=== PATIENT | female | born 2000 | race Caucasian/White ===

== ENCOUNTER 2020-01-14 14:01 | Emergency (ER) | payer MEDICAID, SELFPAY ==
[2020-01-14 14:39] VITALS: BP 140/86; PULSE 92; RESP 16; TEMP 36.9; O2SAT 100; BMI 22.6
--- NOTE | 2020-01-14 15:07 | PC.NURSE ---
PT ALERT, AMBULATORY WITH STEADY GAIT. NO RESP DISTRESS. PT HAD PIMPLE SHE PICKED 2 DAYS AGO TO RIGHT DRUZE AREA AND TODAY HERE RIGHT UNDER EYE BECAME SWOLLEN.
[2020-01-14 15:11] VITALS: BP 132/83; PULSE 88; RESP 18; TEMP 37.3; O2SAT 99
--- NOTE | 2020-01-14 15:19 | ED.SKABFB ---
HPI - Skin/Abscess/Foreign Bdy General Chief complaint: Skin/Abscess/Foreign Body Stated complaint: lump on face Time Seen by Provider: 01/14/20 15:19 History of Present Illness HPI narrative: Patient complains of pain swelling redness to the right alevism area for 2-3 days after squeezing a pimple Now there is some swelling on her cheek and by the right eye, she has no eye pain or vision loss no fever no chills no headache no dizziness no ear pain Related Data Previous Rx's Medication Instructions Recorded clindamycin HCl 300 mg PO Q6H 7 Days #28 cap 01/14/20 doxycycline hyclate 100 mg PO BID 7 Days #14 cap 01/14/20 Allergies Allergy/AdvReac Type Severity Reaction Status Date / Time No Known Allergies Allergy Verified 01/14/20 14:41 [No Known Allergies*] Review of Systems Review of Systems: No fever no chills no dizziness no chest pain or shortness of breath no diarrhea no vomiting no numbness weakness or tingling Yes all other systems are reviewed and are negative [facility] Past Medical History Source: nursing notes reviewed Medical History (Updated 01/14/20 @ 15:22 by RAKESH Price) No known health problems Social History Social History Alcohol intake: never Smoked in Last 30 Days: No Use of substances other than those prescribed or required for medical reasons: No Advance Directives: No Advance Directives Information Provided: Yes Physical Exam Vital Signs: Vital Signs: Last Vital Signs Temp 99.2 F 01/14/20 15:11 Pulse 88 01/14/20 15:11 Resp 18 01/14/20 15:11 BP 132/83 01/14/20 15:11 Pulse Ox 99 01/14/20 15:11 Body Mass Index 22.6 General appearance is no acute distress, cooperative The facial exam in the right alevism area there is a small scabbed area with no swelling no fluctuance no discharge no abscess which has some surrounding erythema and tenderness and warmth, there is also some soft tissue swelling without redness in the infraorbital area and lateral orbital area, but there is no redness no warmth there is full range of extraocular motions which are intact and painless pupils equal round reactive to light, right ear exam is normal with normal tympanic membrane no redness, canal is normal Pharynx is clear Neck is supple without lymphadenopathy Respiratory no distress not Extremities full range of motion x4 Neuro no focal deficit balance is normal speech is normal motor is 5/5 x4, cranial nerves 2 through 12 intact as tested Course Course Course Narrative: Patient has a facial cellulitis in the right alevism area the swelling without redness or tenderness lateral and inferior to the orbit is most likely associated soft tissue tenderness there does not seem to be a periorbital cellulitis yet and there is no pain with extraocular motions, no fever no systemic symptoms so patient is discharged on trial of outpatient antibiotics Discharge Plan Discharge Clinical Impression: Cellulitis Qualifiers: Site of cellulitis: face Qualified Code(s): L03.211 - Cellulitis of face Patient Disposition: Home, Self-Care Additional Instructions: Return to ER, or to primary doctor in 2 days for re-evaluation and recheck Return to ER immediately any time for spreading redness, worse pain and swelling, fever, any sign of worsened infection Take probiotics with clindamycin antibiotic to prevent antibiotic associated diarrhea Prescriptions: New clindamycin HCl 300 mg capsule 300 mg PO Q6H 7 Days Qty: 28 RF: 0 doxycycline hyclate 100 mg capsule 100 mg PO BID 7 Days Qty: 14 RF: 0 Interventions: ED Discharge Assessment Last Done: 01/14/20 16:03 Discharge Date/Time: 01/14/20 16:05
== END 2020-01-14 16:05 | disposition home or self-care (01) ==
PROVIDERS: Emergency Provider Emergency Medicine; PCP Nurse Practitioner Family
DX: L03.211 Cellulitis of face (principal); Z79.899 Other long term (current) drug therapy
CPT/HCPCS: 99283; 99284

== ENCOUNTER 2020-04-14 07:51 | Emergency (ER) | payer MEDICAID, SELFPAY ==
[2020-04-14 08:16] VITALS: BP 114/78; PULSE 97; RESP 16; TEMP 37.2; O2SAT 99; BMI 21.4
[2020-04-14 08:44] LABS: Glucose Urine UA NEG (NEG); Leukocyte Esterase Urine 3+ (NEG); Nitrite Urine NEG (NEG); PH 6.5 (5.0-8.0); Specific Gravity - Urine <= 1.005 (1.005-1.025); UACC Culture Trigger YES; Urine Blood 3+ (NEG); Urine Ketones NEG (NEG); Urine Protein 1+ MG/DL (NEG-TRACE)
[2020-04-14 08:46] LABS: Appearance Urine HAZY; Color Urine PINK
[2020-04-14 08:47] LABS: UPreg QC Valid YES; Urine Pregnancy NEGATIVE (NEGATIVE)
[2020-04-14 08:56] LABS: Amorphous Sediment Urine 1+ /LPF; Bacteria Urine 1+ /LPF; Squamous Epithelial Cell Urine TRACE /LPF; WBC Urine 50-75 /HPF (0-4)
--- NOTE | 2020-04-14 09:21 | ED.FEMALEGU ---
HPI - Female Genitourinary General Chief complaint: Urogenital-Female Stated complaint: PAINFUL UPON URINATION Time Seen by Provider: 04/14/20 07:54 Source: patient Mode of arrival: ambulatory Limitations: no limitations History of Present Illness HPI Narrative: Otherwise healthy 20-year-old female who denies significant past medical history who presents today with complaint of 2 days of dysuria and mild hematuria with void. States she found out yesterday they her boyfriend had cheated on her and he was potentially exposed to chlamydia/gonorrhea for he which she was tested yesterday and treated however the test results are pending. She denies any back pain, pelvic pain, abdominal pain, nausea vomiting or diarrhea. Denies any vaginal lesions. States there is no possibility of as she has Nexplanon. MD elicited complaint: possible STD Onset (ago): day(s) Severity: mild Vaginal discharge: none Vaginal bleeding: none Urinary symptoms: Dysuria Exacerbating factors: none Relieving factors: none Associated symptoms: denies other symptoms Treatment prior to arrival: none Sexual activity: Yes Patient : No Related Data Previous Rx's Medication Instructions Recorded clindamycin HCl 300 mg PO Q6H 7 Days #28 cap 01/14/20 doxycycline hyclate 100 mg PO BID 7 Days #14 cap 01/14/20 doxycycline monohydrate 100 mg PO BID 7 Days #14 cap 04/14/20 metronidazole [Flagyl] 2,000 mg PO ONCE #4 tab 04/14/20 phenazopyridine [Pyridium] 100 mg PO TID PRN #6 tab 04/14/20 Allergies Allergy/AdvReac Type Severity Reaction Status Date / Time No Known Allergies Allergy Verified 01/14/20 14:41 [No Known Allergies*] Review of Systems Review of Systems: Constitutional: No Weight loss, No Fever, No Chills, No Night Sweats, No Fatigue, No Malaise ENT/Mouth: No Hearing loss, No Ear Pain, No Nasal Congestion, No Sinus Pain, No Hoarseness, No sore throat, No Rhinorrhea, No Swallowing Difficulty Eyes: No Eye Pain, No Swelling, No Redness, No Foreign Body, No Discharge, No Vision Changes Cardiovascular: No Chest Pain, No SOB, No Dyspnea on Exertion, No Orthopnea, No Edema, No Palpitations Respiratory: No Cough, No Sputum, No Wheezing, No Dyspnea Gastrointestinal: No Nausea, No Vomiting, No Diarrhea, No Constipation, No abdominal Pain, No Hematochezia, No Melena Genitourinary: As noted per HPI, No Urinary Frequency, No Urinary Incontinence, No Urgency, No Flank Pain, No Urinary Flow Changes Musculoskeletal: No joint pain, No Myalgias, No Joint Swelling Skin: No Skin Lesions, No rash Neuro: Negative Psych: Negative Heme/Lymph: Negative Endocrine: No Polyuria, No Polydipsia, No Temperature Intolerance Yes all other systems are reviewed and are negative [facility] Past Medical History Medical History (Updated 04/14/20 @ 13:18 by Michael Ward NP) No known health problems Social History Social History Alcohol intake: never Smoking Status: Never smoker Use of substances other than those prescribed or required for medical reasons: Yes Substance Use Type: Marijuana Substance Use Frequency: Occasionally Advance Directives: Yes Advance Directives Information Provided: Yes Advance Directives on File: No Physical Exam Vital Signs: Vital Signs: Last Vital Signs Temp 98.9 F 04/14/20 08:16 Pulse 97 04/14/20 08:16 Resp 16 04/14/20 08:16 BP 114/78 04/14/20 08:16 Pulse Ox 99 04/14/20 08:16 Body Mass Index 21.4 Reviewed Const: General: cooperative and healthy appearing; No acute distress or intoxicated appearing Nutritional Appearance: average body habitus Orientation/consciousness: patient oriented x3 HENMT: Head: Yes normal to inspection Ears: hearing grossly normal bilaterally Eyes: General: appearance normal, both eyes and all related structures Visual Arita: normal visual arita by confrontation Chest: Chest palpation & inspection: normal inspection of the chest Resp: Effort & Inspection: normal respiratory effort Cardio: Jugular venous distension: no JVD Rhythm: regular rhythm Heart sounds: S1 normal heart sound present and S2 normal heart sound present GI: Inspection: Yes normal to inspection Palpation (GI): Soft to palpation Percussion: Yes normal to percussion Auscultation: normal bowel sounds : Other: Declined pelvic exam General: Yes no CVA tenderness Back/Spine/Pelvis: Back: no CVA tenderness Skin: General skin exam: no rashes or lesions noted Neuro: General: patient oriented x3 Extrem: General: Yes normal to inspection Course Course Course Narrative: Labs positive for gonorrhea as well as Trichomonas. Patient already given ceftriaxone, doxy and Flagyl. Lab findings were discussed with her and the plan for fu. MDM - Female Genitourinary MDM Narrative Medical decision making narrative: Otherwise healthy 20-year-old female denies any past medical/surgical history presenting with dysuria and mild hematuria in the setting of possible STD exposure for chidi got tested yesterday he got treated for potential chlamydia/gonorrhea she would like to get tested as well. No other systemic symptom declined pelvic exam will do UA/U preg, CT ng as well as BV and treatment prior coulee with ceftriaxone 500 mg IM and start on doxycycline with plan for discharge home with Pyridium. States I did speak to lab and CT ng results should come back this afternoon. Advised patient will call in additional scripts if needed. Differential Diagnosis Differential diagnosis: Likely urinary tract infection, bacterial vaginosis, trichomoniasis and vaginitis; Unlikely cervicitis, ovarian cyst, ruptured ovarian cyst, cyst of Bartholin's gland, cystitis and dysmenorrhea Medical Records Attestation: I reviewed the patient's medical records. Lab Data Attestation: I reviewed the patient's lab results. Labs: Lab Results 04/14/20 04/14/20 04/14/20 Range/Units 08:33 09:41 09:44 Urine Color PINK Urine Appearance HAZY Urine pH 6.5 (5.0-8.0) Ur Specific [place] <= 1.005 (1.005-1.025) Urine Protein 1+ H (NEG-TRACE) MG/DL Urine Glucose (UA) NEG (NEG) MG/DL Urine Ketones NEG (NEG) MG/DL Urine Blood 3+ H (NEG) Urine Nitrite NEG (NEG) Ur Leukocyte Esterase 3+ H (NEG) Urine RBC 5-9 H (0) /HPF Urine WBC 50-75 H (0-4) /HPF Ur Squamous Epith Cells TRACE /LPF Amorphous Sediment 1+ /LPF Urine Bacteria 1+ /LPF Urine Test NEGATIVE (NEGATIVE) Narcisa species DNA Negative (Negative) Chlam trachomat DNA PCR NOT DETECTED (Not Detect.) Gardnerella DNA Probe Negative (Negative) N.gonorrhoeae DNA (PCR) DETECTED A (Not Detect.) Trichomonas DNA Probe Positive A (Negative) Discharge Plan Discharge Clinical Impression: Encounter for assessment of STD exposure, Gonorrhea, infection, trichomonal Patient Disposition: Home, Self-Care Instructions: Sexually Transmitted Diseases (ED), Safe Sex Practices (ED) Additional Instructions: Drink plenty fluids Take the full course of antibiotic as prescribed Return if any concerns or worsening symptoms otherwise follow-up with [facility] for further evaluation and treatment in the next 1 week Thank you Prescriptions: New doxycycline monohydrate 100 mg capsule 100 mg PO BID 7 Days Qty: 14 RF: 0 phenazopyridine [Pyridium] 100 mg tablet 100 mg PO TID PRN (Reason: pain) Qty: 6 RF: 0 metronidazole [Flagyl] 500 mg tablet 2,000 mg PO ONCE Qty: 4 RF: 0 No Action clindamycin HCl 300 mg capsule 300 mg PO Q6H 7 Days Qty: 28 RF: 0 doxycycline hyclate 100 mg capsule 100 mg PO BID 7 Days Qty: 14 RF: 0 Referrals: Physician,Unknown [Primary Care Provider] - 3 days ([facility]) Interventions: ED Discharge Assessment Last Done: 04/14/20 10:16 Discharge Date/Time: 04/14/20 10:17
[2020-04-14] MEDS: cefTRIAXone sodium 500 MG, Lidocaine HCl 1 % MPF 1 ML IM (09:52)
[2020-04-14 11:51] LABS: CT PCR NOT DETECTED (Not Detect.); NG PCR DETECTED (Not Detect.)
[2020-04-14 11:53] LABS: BV Int Neg Control Negative (Negative); BV Int Pos Control Positive (Positive)
== END 2020-04-14 10:17 | disposition home or self-care (01) ==
PROVIDERS: Nurse Practitioner Primary Care; Emergency Provider Emergency Medicine
DX: A59.01 Trichomonal vulvovaginitis (principal); A54.9 Gonococcal infection, unspecified; N73.9 Female pelvic inflammatory disease, unspecified; Z11.3 Encounter for screening for infections with a predominantly sexual mode of transmission
CPT/HCPCS: 81001; 81003; 81025; 87086; 87147; 87480; 87491; 87510; 87591; 87660; 96372; 99283; 99284; J0696

== ENCOUNTER 2021-08-12 17:18 | Emergency (ER) | payer MEDICAID, SELFPAY ==
--- NOTE | ~2021-08-12 | XR_ITS ---
EXAMINATION:XR ankle RT min 3V CLINICAL INFORMATION: Reason for Exam injury COMPARISON: None TECHNIQUE: AP, lateral, and mortise views of the ankle. FINDINGS: There is nondisplaced avulsion chip fracture from the tip of the lateral malleolus. There is adjacent soft tissue swelling.. Ankle mortise is preserved. Tibial plafond and talar dome are intact. Medial and lateral malleoli are properly aligned. Subtalar joint is normal. There is no osteolytic or osteoblastic lesions. XR/XR ankle RT min 3V IMPRESSION: Nondisplaced avulsion chip fracture of the tip of the lateral malleolus. Adjacent soft tissue swelling.
[2021-08-12 17:35] VITALS: BP 126/80; PULSE 94; RESP 16; TEMP 36.4; O2SAT 99; BMI 30.2
--- NOTE | 2021-08-12 19:07 | ED_ITS ---
HPI - Extremity Injury (Lower) General Chief Complaint: Extremity Injury, Lower Stated Complaint: R Ankle Sprain 08/09/21 Time Seen by Provider: 08/12/21 19:06 Source: patient Mode of arrival: ambulatory Limitations: no limitations History of Present Illness HPI Narrative: 21 yo f presents w/ right ankle pain s/p rolling her ankle while walking down a step with cat litter. Pain started immediatly worse with weight bearing better at rest. She tells me she heard a noise. Also reports swelling. Denies numbness and tingling MD complaint: ankle injury Onset (ago): hour(s) (4) Place: home Severity: moderate Relieving factors: immobilization Exacerbating factors: weight bearing and movement Context: other ( clumsy ) Associated symptoms: snap/pop sensation Other symptoms: none Related Data Previous Rx's Medication Instructions Recorded clindamycin HCl 300 mg capsule 300 mg PO Q6H 7 days #28 caps 01/14/20 doxycycline hyclate 100 mg capsule 100 mg PO BID 7 days #14 caps 01/14/20 doxycycline monohydrate 100 mg 100 mg PO BID 7 days #14 caps 04/14/20 capsule metronidazole 500 mg tablet 2,000 mg PO ONCE #4 tabs 04/14/20 (Flagyl) phenazopyridine 100 mg tablet 100 mg PO TID PRN pain 6 doses #6 04/14/20 (Pyridium) tabs Allergies Allergy/AdvReac Type Severity Reaction Status Date / Time No Known Allergies Allergy Verified 01/14/20 14:41 [No Known Allergies*] Review of Systems Review of Systems: Constitutional : No Weight loss, No Fever, No Chills, No Fatigue, No Malaise ENT/Mouth : No sore throat, No Rhinorrhea Eyes: No Eye Pain, No Swelling, No Redness Cardiovascular : No Chest Pain, No SOB, No Dyspnea on Exertion, No Orthopnea, No Edema, No Palpitations Respiratory : No Cough, No Sputum, No Wheezing Gastrointestinal : No Nausea, No Vomiting, No Diarrhea, No Constipation, No abdominal Pain, No Hematochezia, No Melena Genitourinary : No Dysuria, No Urinary Frequency, No Hematuria, Musculoskeletal : + joint pain, No Myalgias, + Joint Swelling Skin : No Skin Lesions, No rash Neuro : No Weakness, No Numbness, No Dizziness, No Headache All other systems reviewed and are negative Yes all other systems are reviewed and are negative [facility] Past Medical History Attestation statement: The following information was validated with the patient. Source: old records reviewed and nursing notes reviewed Medical History No known health problems Social History Social History Alcohol intake: never Substance Use Type: Marijuana Advance Directives: No Advance Directives Information Provided: No Physical Exam Vital Signs: Vital Signs: Last Vital Signs Temp 97.6 F 08/12/21 17:35 Pulse 94 08/12/21 17:35 Resp 16 08/12/21 17:35 BP 126/80 08/12/21 17:35 Pulse Ox 99 08/12/21 17:35 O2 Del Method 08/12/21 17:35 BMI result Body Mass Index 30.2 VSS Appearance: Alert.? Oriented X3.? No acute distress.? Head: Normocephalic, atraumatic, no step-offs or deformities Eyes: Pupils equal, round and reactive to light.? ENT: Pharynx normal.? Neck: Normal inspection.? Neck supple.? CVS: Normal heart rate and rhythm.? Pulses normal.? Respiratory: No respiratory distress.? Breath sounds normal.? Abdomen: Soft and nontender.? Skin: Skin warm and dry.? Normal skin color.? Normal skin turgor.? Extremities: 5/5 strength to bilateral upper and lower extremities + 2+ DP/PT pulse equal and b/l. Sensory and motor intact. Normal cap refill to b/l lower extremities R. Ankle swollen with slight edema and echhymosis to R. Lateral malleolous. Pain w/ palpation over malleolus. Limited rom on right due to pain. Neuro: Oriented X 3.? No motor deficit.? No sensory deficit. CN 2-12 intact. Ambulates w/ limp to right. Course Reevaluation(s) Reevaluation #1: Patient educated on plan, advised to follow up with ortho, and return w/ new or worsening sx. Time: 19:17 MDM - Extremity Injury (Lower) MDM Narrative Medical decision making narrative: 1907 21 yo f presents w/ Rt. ankle pain s/p rolling ankle PE 5/5 strength to bilateral upper and lower extremities + 2+ DP/PT pulse equal and b/l. Sensory and motor intact. Normal cap refill to b/l lower extremities R. Ankle swollen with slight edema and echhymosis to R. Lateral malleolous. Pain w/ palpation over malleolus. Limited rom on right due to pain. Plan- walking boot and crutches. Medical Records Attestation: I reviewed the patient's medical records. Lab Data Attestation: I reviewed the patient's lab results. Critical Care Time Critical Care Time Critical Care Time: No Discharge Plan Discharge Clinical Impression: Fracture of lateral malleolus Patient Disposition: Home, Self-Care Instructions: Ankle Fracture (ED), Crutch Instructions (ED) Additional Instructions: Take your medications as prescribed. If you were prescribed antibiotics today, it is important that you take your medication to their entirety, do not skip any doses, do not finish them early. Follow-up with your primary care provider this week. Return to the emergency department with new or worsening symptoms. In case of emergency call 911 Take ibuprofen every 6 hours Tylenol every 4 hours. XR/XR ankle RT min 3V IMPRESSION: Nondisplaced avulsion chip fracture of the tip of the lateral malleolus. ? Adjacent soft tissue swelling. Prescriptions: No Action doxycycline monohydrate 100 mg capsule 100 mg PO BID 7 Days Qty: 14 0RF phenazopyridine [Pyridium] 100 mg tablet 100 mg PO TID PRN (Reason: pain) Qty: 6 0RF metronidazole [Flagyl] 500 mg tablet 2,000 mg PO ONCE Qty: 4 0RF clindamycin HCl 300 mg capsule 300 mg PO Q6H 7 Days Qty: 28 0RF doxycycline hyclate 100 mg capsule 100 mg PO BID 7 Days Qty: 14 0RF Referrals: [facility] [Provider Group] - 2 weeks Physician,Unknown J [Primary Care Provider] - 2 days Stand Alone Forms: Work/School Release
== END 2021-08-12 19:53 | disposition home or self-care (01) ==
PROVIDERS: Emergency Provider Emergency Medicine
DX: S82.61XA Displaced fracture of lateral malleolus of right fibula, initial encounter for closed fracture (principal); W10.9XXA Fall (on) (from) unspecified stairs and steps, initial encounter; Y93.9 Activity, unspecified; Y92.9 Unspecified place or not applicable; Y99.9 Unspecified external cause status; Z79.899 Other long term (current) drug therapy
CPT/HCPCS: 73610; 99283

== ENCOUNTER 2021-09-16 13:37 | Outpatient (REF) | payer MEDICAID, SELFPAY ==
--- NOTE | ~2021-09-16 | XR_ITS ---
EXAMINATION: XR ANKLE, RIGHT CLINICAL INFORMATION: Right ankle pain. COMPARISON: 08/12/2021 TECHNIQUE: AP, lateral, and mortise views of the right ankle. FINDINGS: There is again noted to be an avulsion fracture off the tip of the right fibula with some adjacent soft tissue swelling. There is no change in appearance with lucent fracture line still being evident. The ankle mortise appears intact. No ankle effusion is appreciated. XR/XR ankle RT min 3V IMPRESSION: No change in appearance of nondisplaced distal right fibular avulsion fracture.
== END 2021-09-16 13:38 | disposition home or self-care (01) ==
LOC: HO.HOSX 13:37
PROVIDERS: Visit Provider Physician Assistant
DX: S82.891A Other fracture of right lower leg, initial encounter for closed fracture (principal)
CPT/HCPCS: 73610; 99202

== ENCOUNTER 2022-09-09 12:48 | Emergency (ER) | payer MEDICAID, SELFPAY ==
--- NOTE | 2022-09-09 12:58 | ED.EAR ---
HPI - Ear Problem General Chief complaint: Ear Problems Stated complaint: pain in left ear Time Seen by Provider: 09/09/22 12:58 Source: patient Mode of arrival: ambulatory Limitations: no limitations History of Present Illness HPI Narrative: 22 yo female with no medical history here with left ear pain/drainage x several days. Had URI a few weeks ago. No fevers, chills, hearing loss, itching of the ear. Related Data Previous Rx's Medication Instructions Recorded metronidazole 500 mg tablet 2,000 mg PO ONCE #4 tabs 04/14/20 (Flagyl) phenazopyridine 100 mg tablet 100 mg PO TID PRN pain 6 doses #6 04/14/20 (Pyridium) tabs Allergies Allergy/AdvReac Type Severity Reaction Status Date / Time No Known Allergies Allergy Verified 09/16/21 14:10 [No Known Allergies*] Review of Systems Review of Systems: Yes all other systems are reviewed and are negative Constitutional: Constitutional: Reports no additional constitutional complaints, Denies body ache(s), Denies chills, Denies fever(s), Denies headache(s) and Denies weakness Eyes: Eyes: Reports no additional eye complaints and Denies change in vision ENT: Reports system reviewed and no additional complaints, except as documented, Denies dizziness, Reports ear discharge, Reports otalgia, Denies headache(s), Denies nasal congestion, Denies nasal discharge and Denies neck pain Cardiovascular: Cardiovascular: Reports no additional cardiovascular complaints, Denies chest pain, Denies leg edema and Denies dyspnea Respiratory: Respiratory: Reports no additional respiratory complaints, Denies cough and Denies dyspnea Gastrointestinal: Gastrointestinal: Reports no additional gastrointestinal complaints, Denies abdominal pain, Denies diarrhea, Denies nausea and Denies vomiting Genitourinary: Genitourinary: Reports no additional female genitourinary complaints and Denies urinary incontinence Musculoskeletal: Musculoskeletal: Reports no additional musculoskeletal complaints, Denies back pain, Denies arthralgias, Denies joint swelling, Denies neck pain, Denies numbness and Denies tingling Integumentary/Breasts: Skin/Breast: Reports system reviewed and no additional complaints, except as docu and Denies rash Neurologic: Reports system reviewed and no additional complaints, except as documented, Denies Abnormal speech present, Denies dizziness, Denies headache(s), Denies numbness, Denies tingling and Denies weakness [facility] Past Medical History Attestation statement: The following information was validated with the patient. Source: old records reviewed and nursing notes reviewed Medical History No known health problems Social History Social History Alcohol intake: never Substance Use Type: Marijuana Advance Directives: No Advance Directives Information Provided: Yes Current occupational status: unemployed Current occupation: lt h and Physical Exam Vital Signs: Vital Signs: Last Vital Signs Temp 97.6 F 09/09/22 12:59 Pulse 83 09/09/22 12:59 Resp 16 09/09/22 12:59 BP 148/100 H 09/09/22 12:59 Pulse Ox 100 09/09/22 12:59 O2 Del Method Room Air 09/09/22 12:59 BMI result Body Mass Index 30.3 Const: General: cooperative, healthy appearing, comfortable and no acute distress Orientation/consciousness: patient oriented x3 Limitations: no limitations HEENT: Head: Yes normal to inspection Ears: hearing grossly normal bilaterally, TM normal on the right, mastoids normal, no periauricular adenopathy and TM abnormal (Left TM with effusion with no erythema) General nose exam: Normal external nose present Face and sinus: Yes normal facial exam Mouth: Normal oral and palatal mucosa present Throat: Yes posterior oropharynx normal, Yes tonsils normal and Yes uvula midline Eyes: General: appearance normal, both eyes and all related structures Pupils: Equal, round and reactive pupils present Neck: Neck: Yes normal visual inspection, Yes full ROM, Yes no lymphadenopathy and Yes no meningeal signs Chest: Chest palpation & inspection: normal inspection of the chest Resp: Effort & Inspection: normal respiratory effort Auscultation: clear to auscultation bilaterally Cardio: Rate: regular rate Rhythm: regular rhythm Peripheral pulses: Peripheral pulses 2+ throughout GI: Inspection: Yes normal to inspection Palpation (GI): Soft to palpation and nontender Auscultation: normal bowel sounds Back/Spine/Pelvis: Thoracic/Lumbar Spine: thoracic and lumbar spine normal to inspection Skin: General skin exam: no rashes or lesions noted Neuro: General: patient oriented x3, no meningeal signs, no focal motor deficits and normal sensation to monofilament Cranial nerves: Yes Equal, round and reactive pupils present Cognition (Neuro): normal cognition Speech: No Abnormal speech present Gait exam (Neuro): Normal gait present Motor exam (neuro): 5/5 motor strength present throughout Extrem: General: Yes normal to inspection Medical Decision Making Medical Decision Making [facility] Narrative: 22 yo female here with left ear pain x several days with ear drainage with recent URI. On exam there is an effusion with no evidence of AOM likely secondary to recent URI. VSS Recommend daily claritin, flonase, sudafed prn. Reviewed worrisome signs/symptoms with patient and when to seek additional care. Comfortable with discharge home. Differential Diagnosis Differential Diagnoses: The differential diagnosis associated with the presentation includes AOM, otitis externa, malignant otitis externa, mastoiditis Independent Historian Clinical information obtained from an independent historian. History obtained from or confirmed by: Friend clinical information obtained by friend and confirmed by patient Discharge Plan Discharge Clinical Impression: Acute dysfunction of left eustachian tube Patient Disposition: Home, Self-Care Instructions: Earache (ED) Additional Instructions: Consider taking daily claritin, flonase and or sudafed Take motrin/tylenol for pain as needed Prescriptions: No Action phenazopyridine [Pyridium] 100 mg tablet 100 mg PO TID PRN (Reason: pain) Qty: 6 0RF metronidazole [Flagyl] 500 mg tablet 2,000 mg PO ONCE Qty: 4 0RF Referrals: Physician,None [Primary Care Provider] - 1 week
[2022-09-09 12:59] VITALS: BP 148/100; PULSE 83; RESP 16; TEMP 36.4; O2SAT 100; BMI 30.3
== END 2022-09-09 13:20 | disposition home or self-care (01) ==
PROVIDERS: Emergency Provider Emergency Medicine
DX: H92.02 Otalgia, left ear (principal); H68.102 Unspecified obstruction of Eustachian tube, left ear
CPT/HCPCS: 99282

== ENCOUNTER 2022-11-18 00:57 | Emergency (ER) | payer MEDICAID, SELFPAY ==
[2022-11-18 00:59] VITALS: BP 146/95; PULSE 116; RESP 16; TEMP 37.4; O2SAT 97; BMI 29.3
--- NOTE | 2022-11-18 01:18 | ED.SKABFB ---
HPI - Skin/Abscess/Foreign Bdy General Chief complaint: General Medical Stated complaint: Chin swollen/No Inj Time Seen by Provider: 11/18/22 01:12 Source: patient Mode of arrival: ambulatory Limitations: no limitations History of Present Illness HPI narrative: 22 yo female with no sig PMH has hx of acne at this time did have acne on the chin did touch the face and today noted swelling and pain to the chin. No fevers or systemic symptoms. No sweling in mouth or neck, no fevers nausea or vomiting, no chickenpox as a child no nx of MRSA MD complaint: rash and lesion Onset (ago): day(s) (1) Tetanus up to date: yes Location: face (chin) Severity: moderate Quality: aching, dull and constant Pain Consistency: constant Exacerbating factors: palpation Context: other (acne) Associated symptoms: denies other symptoms Treatments prior to arrival: none Related Data Previous Rx's Medication Instructions Recorded metronidazole 500 mg tablet 2,000 mg (4 x 500 mg) PO ONCE #4 04/14/20 (Flagyl) tabs phenazopyridine 100 mg tablet 100 mg PO TID PRN pain 6 doses #6 04/14/20 (Pyridium) tabs doxycycline hyclate 100 mg capsule 100 mg PO BID 7 days #14 caps 11/18/22 mupirocin 2 % topical ointment 1 appl topical BID 7 days #15 grams 11/18/22 Allergies Allergy/AdvReac Type Severity Reaction Status Date / Time No Known Allergies Allergy Verified 11/18/22 01:03 [No Known Allergies*] Review of Systems Review of Systems: Constitutional : No Fever, No Chills Eyes: No Eye Pain, No Swelling, No Redness Cardiovascular : No Chest Pain, No SOB Respiratory : No Cough, No Sputum Gastrointestinal : No Nausea, No Vomiting, No Diarrhea, No abdominal Pain Genitourinary : No Dysuria, No Hematuria Musculoskeletal : No joint pain, No Myalgias, No Joint Swelling Skin : pos Skin Lesions, positive skin rash Neuro : No Weakness, No Numbness, No Headache Psych : No Anxiety, No Depression All other systems reviewed and are negative [facility] Past Medical History Medical History No known health problems Social History Social History (Updated 11/18/22 @ 01:20 by Diana Campa DO) Alcohol intake: never Patient Tobacco Use Status: Tobacco use Unknown Substance Use Type: Marijuana Current occupational status: unemployed Current occupation: lt h and Physical Exam Vital Signs: Vital Signs: Last Vital Signs Temp 99.3 F 11/18/22 00:59 Pulse 116 H 11/18/22 00:59 Resp 16 11/18/22 00:59 BP 146/95 H 11/18/22 00:59 Pulse Ox 97 11/18/22 00:59 O2 Del Method Room Air 11/18/22 00:59 BMI result Body Mass Index 29.3 Appearance: Alert. Oriented X3. No acute distress. Eyes: Pupils equal, round and reactive to light. ENT: Pharynx normal. no swelling inside mouth - chin has 2 whiteheads and some crusted yellow lesions but no vesicles no fluctuant abscess felt there is erythema and redness noted - no lip swelling and no swelling around bilateral old piercings. Neck: Normal inspection. Neck supple. no submandibular or sublingual swelling CVS: Pulses normal. Respiratory: No respiratory distress. Abdomen: Soft and nontender. Skin: Skin warm and dry. Normal skin color. Normal skin turgor. Extremities: No lower extremity edema. Neuro: Oriented X 3. No motor deficit. No sensory deficit. Medical Decision Making Medical Decision Making MDM Narrative: 22 yo female with hx of acne no hx of MRSA here with c/o facial pain and swelling at chin - no extension to mouth or neck no abscess felt no vesicles to suggest zoster no hx of chickenpox at this time will start on doxy and mupirocin given appearance with warm compress and precautions to return. Differential Diagnosis Differential Diagnoses: The differential diagnosis associated with the presentation includes abscess, cellulitis, MRSA Admission/Observation Consideration of admission/observation: Escalation of care including admission/observation considered no extension or systemic symptoms can trial oral antibiotics Independent Historian Clinical information obtained from an independent historian. History obtained from or confirmed by: Spouse Prescription Management I considered prescription management with: Antibiotic Discharge Plan Discharge Clinical Impression: Cellulitis Qualifiers: Site of cellulitis: face Qualified Code(s): L03.211 - Cellulitis of face Patient Disposition: Home, Self-Care Instructions: Cellulitis (ED), Warm Compress or Soak (ED) Additional Instructions: Take a probiotic while you are on antibiotics and for at least one week after the antibiotics are finished - this can help protect your GI system from diarrhea and other issues. You can get probiotics by drinking kefir, eating yogurt or culturelle or another pill form of probiotic. Do not take it at the same time as you take the antibiotic.?More than 6 to 8 loose stools a day is not normal seek care if this happens On doxycycline, do not take pills immediately before going to bed and swallow pills with plenty of water. Avoid direct sunlight, iron, antacids, and Pepto Bismol. Call your provider if you develop new ringing in your ears, new problems hearing, dizziness, difficulty swallowing, rash, abdominal discomfort, nausea, or diarrhea.? return for worsening symptoms - swelling, pain, fevers, swelling tracks down neck or face, finish all antibiotics, warm compresses 4 times a day for 3 days. take tylenol or motrin as needed for pain. Prescriptions: New doxycycline hyclate 100 mg capsule 100 mg PO BID 7 Days Qty: 14 0RF mupirocin 2 % ointment 1 appl topical BID 7 Days Qty: 15 0RF No Action phenazopyridine [Pyridium] 100 mg tablet 100 mg PO TID PRN (Reason: pain) Qty: 6 0RF metronidazole [Flagyl] 500 mg tablet 2,000 mg PO ONCE Qty: 4 0RF
== END 2022-11-18 01:46 | disposition home or self-care (01) ==
PROVIDERS: Emergency Provider Emergency Medicine
DX: L03.211 Cellulitis of face (principal); Z79.899 Other long term (current) drug therapy
CPT/HCPCS: 99281

== ENCOUNTER 2022-11-18 17:53 | Emergency (ER) | payer MEDICAID, SELFPAY ==
[2022-11-18 18:02] VITALS: BP 131/82; PULSE 120; RESP 18; TEMP 36.8; O2SAT 99; BMI 30.3
--- NOTE | 2022-11-18 18:05 | ED.GENADULT ---
HPI - General Adult General Chief complaint: Skin/Abscess/Foreign Body Stated complaint: Staff infection on chin Related Data Previous Rx's ?Medication ?Instructions ?Recorded metronidazole 500 mg tablet 2,000 mg (4 x 500 mg) PO ONCE #4 04/14/20 (Flagyl) tabs phenazopyridine 100 mg tablet 100 mg PO TID PRN pain 6 doses #6 04/14/20 (Pyridium) tabs doxycycline hyclate 100 mg capsule 100 mg PO BID 7 days #14 caps 11/18/22 mupirocin 2 % topical ointment 1 appl topical BID 7 days #15 grams 11/18/22 cephalexin 500 mg capsule 500 mg PO QID 10 days #40 caps 11/19/22 doxycycline hyclate 100 mg tablet 100 mg PO BID #20 tabs 11/19/22 Allergies Allergy/AdvReac Type Severity Reaction Status Date / Time vancomycin Allergy Hives Verified 11/19/22 04:55 PMFSH Past Medical History Medical History No known health problems Social History Social History Alcohol intake: never Patient Tobacco Use Status: Tobacco use Unknown Substance Use Type: Marijuana Advance Directives: No Advance Directives Information Provided: No Current occupational status: unemployed Current occupation: lt h and Physical Exam ED Vital Signs: Vital Signs - 24 hr 11/18/22 18:02 Temperature 98.3 F Pulse Rate 120 H Respiratory Rate 18 Blood Pressure 131/82 Pulse Oximetry 99 Oxygen Delivery Method Room Air BMI result Body Mass Index 30.3 Course Course Course Narrative: This is an RME: Additional HPI, ROS, PE not included below will be deferred to primary provider. 22 yo f was seen here ln discharged early this am w/ concerns of staph infection to chin thats worsening. Plan- emc would like to be reevaluated Discharge Plan Discharge Clinical Impression: Eloped from emergency department Patient Disposition: Left W/O Completing Treatment Prescriptions: No Action phenazopyridine [Pyridium] 100 mg tablet 100 mg PO TID PRN (Reason: pain) Qty: 6 0RF metronidazole [Flagyl] 500 mg tablet 2,000 mg PO ONCE Qty: 4 0RF doxycycline hyclate 100 mg capsule 100 mg PO BID 7 Days Qty: 14 0RF mupirocin 2 % ointment 1 appl topical BID 7 Days Qty: 15 0RF cephalexin 500 mg capsule 500 mg PO QID 10 Days Qty: 40 0RF doxycycline hyclate 100 mg tablet 100 mg PO BID Qty: 20 0RF Discharge Date/Time: 11/18/22 21:46
== END 2022-11-18 21:46 | disposition left against medical advice (07) ==
PROVIDERS: Emergency Provider Emergency Medicine
DX: L08.9 Local infection of the skin and subcutaneous tissue, unspecified (principal)
CPT/HCPCS: 99281

== ENCOUNTER 2022-11-19 00:22 | Emergency (ER) | payer MEDICAID, SELFPAY ==
--- NOTE | 2022-11-19 | ECG_ITS ---
Test Reason : TACHYCARDIA Blood Pressure : / mmHG Vent. Rate : 114 BPM Atrial Rate : 114 BPM P-R Int : 170 ms QRS Dur : 078 ms QT Int : 302 ms P-R-T Axes : 040 026 021 degrees QTc Int : 416 ms Sinus tachycardia Low voltage QRS Septal infarct , age undetermined Abnormal ECG No previous ECGs available Referred By: Generic ED Physician Electronically Signed By:BARBARA DONALDSON
[2022-11-19 00:27] VITALS: BP 119/76; PULSE 138; RESP 19; TEMP 39; O2SAT 98; BMI 31.9
[2022-11-19 00:45] VITALS: TEMP 37.4
--- NOTE | 2022-11-19 00:51 | ED.SKABFB ---
HPI - Skin/Abscess/Foreign Bdy General Chief complaint: Skin/Abscess/Foreign Body Stated complaint: Fever/Abscess Time Seen by Provider: 11/19/22 00:50 Source: patient Mode of arrival: ambulatory Limitations: no limitations History of Present Illness HPI narrative: Patient's small pimple on the chin 2 days ago got worse was seen here yesterday and started on doxycycline now having fever and increased swelling spreading to the lower lip Related Data Previous Rx's Medication Instructions Recorded metronidazole 500 mg tablet 2,000 mg (4 x 500 mg) PO ONCE #4 04/14/20 (Flagyl) tabs phenazopyridine 100 mg tablet 100 mg PO TID PRN pain 6 doses #6 04/14/20 (Pyridium) tabs doxycycline hyclate 100 mg capsule 100 mg PO BID 7 days #14 caps 11/18/22 mupirocin 2 % topical ointment 1 appl topical BID 7 days #15 grams 11/18/22 cephalexin 500 mg capsule 500 mg PO QID 10 days #40 caps 11/19/22 doxycycline hyclate 100 mg tablet 100 mg PO BID #20 tabs 11/19/22 Allergies Allergy/AdvReac Type Severity Reaction Status Date / Time No Known Allergies Allergy Verified 11/18/22 01:03 [No Known Allergies*] Review of Systems Review of Systems: Yes all other systems are reviewed and are negative [facility] Past Medical History Medical History No known health problems Social History Social History Alcohol intake: never Patient Tobacco Use Status: Tobacco use Unknown Substance Use Type: Marijuana Advance Directives: No Advance Directives Information Provided: No Current occupational status: unemployed Current occupation: lt h and Physical Exam Vital Signs: Vital Signs: Last Vital Signs Temp 99.4 F 11/19/22 00:45 Pulse 138 H 11/19/22 00:27 Resp 19 11/19/22 00:27 BP 119/76 11/19/22 00:27 Pulse Ox 98 11/19/22 00:27 O2 Del Method Room Air 11/19/22 00:27 BMI result Body Mass Index 31.9 Appearance: Alert. Oriented X3. No acute distress. ENT: Pharynx normal. Oral Mucosa moist Neck: Normal inspection. Neck supple. CVS: Sinus tachycardia. Pulses normal. Respiratory: No respiratory distress. Equal air entry bilateral, Abdomen: Soft and nontender. Bowel sounds are present, Extremities: No lower extremity edema. No calf tenderness Neuro: Oriented X 3. HEENT: Face images: 1. Indurated area nonfluctuant gums normal no dental cavity Medications Administered Generic Name Dose Route Start Last Admin Trade Name Freq PRN Reason Stop Dose Admin Sodium Chloride 1,000 mls @ 999 mls/hr 11/19/22 00:55 11/19/22 01:07 Ns IV 11/19/22 01:55 999 mls/hr .Q1H1M ONE Administration Discontinued Medications Generic Name Dose Route Start Last Admin Trade Name Freq PRN Reason Stop Dose Admin Ketorolac Tromethamine 30 mg 11/19/22 00:55 11/19/22 01:07 Ketorolac Tromethamine 30 Mg/Ml Vial IVPUSH 11/19/22 00:56 30 mg ONCE ONE Administration Lidocaine HCl 2 ml 11/19/22 00:56 11/19/22 01:06 Lidocaine Hcl 1 % Mpf 2 Ml Vial INFILTRATI 11/19/22 00:57 2 ml ONCE ONE Administration Medical Decision Making Medical Decision Making [facility] Narrative: Patient with induration with cellulitis of change it needle aspiration was done no pus aspiratated, will give a dose of vancomycin advised to continue doxycycline will add cephalexin Differential Diagnosis Differential Diagnoses: The differential diagnosis associated with the presentation includes Abscess/cellulitis/sepsis Lab Data [facility] Lab Attestation statement: I reviewed the patient's lab results. 11/19/22 00:54 11/19/22 01:18 Labs: Lab Results 11/19/22 11/19/22 Range/Units 00:54 01:18 WBC 14.8 H (4.8-10.8) X10*3/uL RBC 4.55 (4.20-5.50) X10*6/uL Hgb 13.5 (12.0-16.0) g/dl Hct 39.7 (37.0-47.0) % MCV 87.3 (80.0-98.0) fL MCH 29.7 (27.0-33.0) pg MCHC 34.0 (31.0-35.0) g/dl RDW 12.8 (11.0-16.0) % Plt Count 282 (160-400) X10*3/uL MPV 10.1 (9.4-12.3) fL Immature Gran % (Auto) 0.3 (0.0-0.4) % Neut % (Auto) 77.4 H (45-73) % Lymph % (Auto) 15.5 L (20-40) % Hernando % (Auto) 6.2 (2-11) % Eos % (Auto) 0.3 (0-4) % Baso % (Auto) 0.3 (0-2) % Lymph # (Auto) 2.3 (1.2-4.9) X10*3/uL Hernando # (Auto) 0.9 (0.1-1.2) X10*3/uL Eos # (Auto) 0.1 (0.0-0.4) X10*3/uL Baso # (Auto) 0.0 (0.0-0.2) X10*3/uL Abs Immat Gran (auto) 0.04 H (0.00-0.03) X10*3/uL Absolute Neuts (auto) 11.5 H (2.0-8.3) x10*3/uL Absolute Nucleated RBC 0.000 (0.0-0.012) X10*3/uL Nucleated RBC % (auto) 0.0 (0.0-0.2) /100WBC Sodium 138 (135-145) mmol/L Potassium 3.9 (3.3-5.1) mmol/L Chloride 112 H (96-108) mmol/L Carbon Dioxide 15 L (22-29) mmol/L Anion Gap 15 (12-20) BUN 11 (9-16) mg/dL Creatinine 0.78 (0.5-1.4) mg/dL Estim Creat Clear Calc 101.6 Estimated GFR > 60 Random Glucose 91 (60-115) mg/dL Lactic Acid 1.0 (0.5-2.0) mmol/L Calcium 9.7 (8.4-10.2) mg/dL COVID-19 (BOOM) Negative (Negative) COVID-19 Clin Com See Note Discharge Plan Discharge Clinical Impression: Cellulitis Patient Disposition: Home, Self-Care Instructions: Cellulitis (ED), Warm Compress or Soak (ED) Additional Instructions: Local care as advised Take 10 more days of doxycycline and start on cephalexin as prescribed Follow with PCP or report to ER if not better Prescriptions: New cephalexin 500 mg capsule 500 mg PO QID 10 Days Qty: 40 0RF doxycycline hyclate 100 mg tablet 100 mg PO BID Qty: 20 0RF No Action phenazopyridine [Pyridium] 100 mg tablet 100 mg PO TID PRN (Reason: pain) Qty: 6 0RF metronidazole [Flagyl] 500 mg tablet 2,000 mg PO ONCE Qty: 4 0RF doxycycline hyclate 100 mg capsule 100 mg PO BID 7 Days Qty: 14 0RF mupirocin 2 % ointment 1 appl topical BID 7 Days Qty: 15 0RF
[2022-11-19 00:59] LABS: MANUAL DIFF FLAG NO
[2022-11-19] MEDS: Lidocaine HCl 1 % MPF 2 ML VIAL INFILTRATI (01:06)
[2022-11-19] MEDS: 0.9 % Sodium Chloride 1,000 ML 999 ML IV ×2 (01:07→03:42)
[2022-11-19] MEDS: Ketorolac Tromethamine 30 MG/ML VIAL IVPUSH (01:07)
[2022-11-19 01:12] LABS: Basophils Percent Auto 0.3 % (0-2); Eosinophils Absolute Auto 0.1 X10*3/uL (0.0-0.4); Eosinophils Percent Auto 0.3 % (0-4); Hematocrit 39.7 % (37.0-47.0); Hemoglobin 13.5 g/dl (12.0-16.0); Imm Gran Abs Auto 0.04 X10*3/uL (0.00-0.03); Imm Gran Pct Auto 0.3 % (0.0-0.4); Lymphocytes Absolute Auto 2.3 X10*3/uL (1.2-4.9); Lymphocytes Percent Auto 15.5 % (20-40); Mean Corpuscular Hemoglobin 29.7 pg (27.0-33.0); Mean Corpuscular Volume 87.3 fL (80.0-98.0); Mean Platelet Volume 10.1 fL (9.4-12.3); Monocytes Absolute Auto 0.9 X10*3/uL (0.1-1.2); Monocytes Percent Auto 6.2 % (2-11); Neutrophils Absolute Auto 11.5 x10*3/uL (2.0-8.3); Neutrophils Percent Auto 77.4 % (45-73); Platelet Count 282 X10*3/uL (160-400); Red Blood Count 4.55 X10*6/uL (4.20-5.50); Red Cell Distribution Width 12.8 % (11.0-16.0); White Blood Count 14.8 X10*3/uL (4.8-10.8)
[2022-11-19 01:36] LABS: COVID-19 Test Negative (Negative); IDNOW Serial# 08D9AD1C
[2022-11-19 01:37] LABS: Anion Gap 15 (12-20); Blood Urea Nitrogen 11 mg/dL (9-16); Calcium 9.7 mg/dL (8.4-10.2); Carbon Dioxide 15 mmol/L (22-29); Chloride 112 mmol/L (96-108); Creatinine Clr Calc Pharmacy 101.6; Estimated Glomerular Filt Rate > 60; Glucose Random 91 mg/dL (60-115); Potassium 3.9 mmol/L (3.3-5.1); Sodium 138 mmol/L (135-145)
[2022-11-19] MEDS: vancomycin HCL 1,000 MG, vancomycin HCL 750 MG in 0.9 % Sodium Chloride 500 ML 267.5 MG IV (01:55)
[2022-11-19 02:00] VITALS: BP 126/84; PULSE 122; RESP 18; TEMP 37.6; O2SAT 99
[2022-11-19] MEDS: Acetaminophen 325 MG TABLET 650 MG PO (02:15)
--- NOTE | 2022-11-19 02:19 | PC.NURSE ---
Patient started on vancomycin as per APR. At 2:19AM, patient complained of itching on left upper shoulder blade, this RN observed hives, Dr. Vee alerted as patient is listed as not having allergies, vancomycin discontinued, benadryl ordered, education provided
[2022-11-19] MEDS: diphenhydrAMINE HCL 50 MG/ML VIAL IVPUSH (02:24)
[2022-11-19 04:25] VITALS: BP 121/73; PULSE 111; RESP 15; TEMP 37.3; O2SAT 98
[2022-11-19] MEDS: cephALEXin 500 MG CAPSULE PO (04:48)
--- NOTE | 2022-11-19 04:56 | PC.NURSE ---
patient medicated per MAR prior to discharge. Patient left with significant other, all instructions explained
== END 2022-11-19 04:56 | disposition home or self-care (01) ==
PROVIDERS: Internal Medicine; Emergency Provider Emergency Medicine Emergency Medical Services
DX: L03.211 Cellulitis of face (principal); R50.9 Fever, unspecified; R00.0 Tachycardia, unspecified; Z20.822 Contact with and (suspected) exposure to COVID-19; Z20.828 Contact with and (suspected) exposure to other viral communicable diseases; Z79.899 Other long term (current) drug therapy
CPT/HCPCS: 36415; 80048; 83605; 85025; 87040; 87635; 93005; 96361; 96365; 96366; 96367; 96375; 99284; J1200; J1885; J3370